=== PATIENT | male | born 1965 | race Caucasian/White ===

== ENCOUNTER 2019-04-17 19:30 | Emergency (ER) | payer OTHER ==
[2019-04-17 20:17] VITALS: BP 110/67
[2019-04-17 20:20] LABS: Influenza A Molecular POSITIVE (Negative)
--- NOTE | 2019-04-17 20:55 | UC ---
FLU HPI - HPI Summary HPI Summary: ONSET EARLY THIS MORNING OF COUGH, HEADACHE, CHILLS, BODY ACHES, SORE THROAT AND EAR PRESSURE. NO FLU SHOT THIS SEASON. - History of Current Complaint Chief Complaint: UCGeneralIllness Stated Complaint: FLU SYMPTOMS Time Seen by Provider: 04/17/19 20:26 Hx Obtained From: Patient, Family/Psychic Reader - Onset/Duration: Gradual Onset, Lasting Hours, Still Present Severity Currently: Moderate Severity Initially: Moderate Pain Intensity: 6 Pain Scale Used: 0-10 Numeric Associated Signs & Symptoms: Positive: Myalgia, Cough, Sore Throat, Nasal Congestion, Headache - Allergy/Home Medications Allergies/Adverse Reactions: Allergies Allergy/AdvReac Type Severity Reaction Status Date / Time No Known Allergies Allergy Verified 04/17/19 20:17 Home Medications: Home Medications Ibuprofen TAB* [Advil TAB*] 200 mg PO Q6H PRN 10/06/17 [History Confirmed ] L.acidoph,Paracasei, B.lactis [Probiotic] 1 each PO 10/06/17 [History Confirmed 10/06/17] Multivitamin [Multiple Vitamins] 1 tab PO 10/06/17 [History] Donahue-3 Fatty Acids/Fish Oil [Fish Oil 1,000 mg Capsule] 1 each PO 10/06/17 [ History Confirmed 10/06/17] Vitamin B Complex CAP* [B Complex CAP*] 1 cap PO DAILY 10/06/17 [History Confirmed 10/06/17] Oseltamivir CAP* [Tamiflu CAP*] 75 mg PO BID #10 cap 04/17/19 [Rx] PMH/Surg Hx/FS Hx/Imm Hx Previously Healthy: Yes - Surgical History Surgical History: Yes Surgery Procedure, Year, and Place: APPENDIX ;. DETACHED RETINA AGE 9; - Family History Known Family History: Positive: None Family History: R & n/C - Social History Alcohol Use: None Substance Use Type: None Smoking Status (MU): Never Smoked Tobacco Review of Systems All Other Systems Reviewed And Are Negative: Yes Constitutional: Positive: Chills, Fatigue ENT: Positive: Sore Throat, Ear Ache, Nasal Discharge, Sinus Congestion Respiratory: Positive: Cough Cardiovascular: Positive: Negative Gastrointestinal: Positive: Negative Musculoskeletal: Positive: Myalgia Neurological/Mental Status: Positive: Headache Physical Exam Triage Information Reviewed: Yes Appearance: No Pain Distress, Well-Nourished, Ill-Appearing - FATIGUED Vital Signs: Initial Vital Signs Temp 99.5 F 04/17/19 20:12 Pulse 95 04/17/19 20:12 Resp 16 04/17/19 20:12 BP 110/67 04/17/19 20:12 Pulse Ox 100 04/17/19 20:12 Laboratory Tests 04/17/19 20:16 Influenza A (Rapid) Positive H Vital Signs Reviewed: Yes Eyes: Positive: Conjunctiva Clear ENT: Positive: Hearing grossly normal, Pharynx normal, TMs normal Neck: Positive: Supple, Nontender, No Lymphadenopathy Respiratory Exam: Normal Cardiovascular Exam: Normal Abdomen Description: Positive: Soft Musculoskeletal: Positive: No Edema Neurological: Positive: Alert Psychological: Positive: Age Appropriate Behavior Skin: Negative: Rashes Flu Course/Dx - Course Course Of Treatment: SWAB POSITIVE INFLUENZA A. TAMIFLU TWICE DAILY FOR 5 DAYS. REST, HYDRATE, OTC MEDS NEEDED. FOLLOW-UP IF NOT IMPROVING EXPECTED. - Differential Dx/Diagnosis Provider Diagnosis: Influenza A Discharge ED - Sign-Out/Discharge Documenting (check all that apply): Patient Departure All imaging exams completed and their final reports reviewed: No Studies - Discharge Plan Condition: Stable Disposition: HOME Prescriptions: Oseltamivir CAP* [Tamiflu CAP*] 75 mg PO BID #10 cap Patient Education Materials: Influenza (ED) Referrals: London Hirsch MD [Primary Care Provider] - If Needed Additional Instructions: SWAB POSITIVE FOR INFLUENZA A. TAMIFLU TWICE DAILY FOR 5 DAYS. OTC MEDS NEEDED FOR FEVER, BODY ACHES. STAY WELL HYDRATED AND RESTED. SEEK FOLLOW-UP IF YOU ARE NOT IMPROVING EXPECTED. - Billing Disposition and Condition Condition: STABLE Disposition: Home
== END 2019-04-17 20:35 | disposition home or self-care (01) ==
LOC: UCEAST 19:30
DX: J10.1 Influenza due to other identified influenza virus with other respiratory manifestations (principal)
CPT/HCPCS: 99212; G0463